=== PATIENT | female | born 1965 | race Two or more races ===

== ENCOUNTER 2016-08-08 10:32 | Observation (INO) | payer OTHER ==
[2016-08-07 16:22] VITALS: BMI 33.9
[2016-08-08] VITALS (26 sets, daily range): BP systolic 119–159; BP diastolic 57–71; PULSE 78–92; RESP 16–22; Ht 162.6 cm; Wt 91.4 kg
[~2016-08-08] VITALS: Ht 162.6 cm; Wt 91.4 kg
[2016-08-08] MEDS ORDERED: AMLO-147 PO (11:51)
[2016-08-08] MEDS ORDERED: HYDR-906 PO (11:52)
[2016-08-08] MEDS ORDERED: IBUP800T25 PO (11:52)
[2016-08-08 12:41] LABS: INR 1.08; PARTIAL THROMBOPLASTIN TIME 28.1 Sec (25.0-35.0); PT RATIO 1.1
--- NOTE | 2016-08-08 13:14 | HPN ---
Date/Time of Note Date/Time of Note DATE: 08/08/16 TIME: 13:14 Interval H&P Admission Note Pt. seen H&P reviewed: No system changes SOREN PETERSEN MD Aug 08, 2016 13:14
[2016-08-08] MEDS ORDERED: MIDAZOLAM 1 MG/ML 2 ML INJ ONE (13:18)
[2016-08-08] MEDS ORDERED: ROPIVACAINE 0.5 % 30 ML VIAL ONE (13:18)
[2016-08-08] MEDS: CEFAZOLIN 1 GM/50 ML (PMX) 50 ML IVPB SCH ×2 (13:30→21:41)
[2016-08-08] MEDS ORDERED: oxyCODONE 5 MG TAB PO PRN (13:30)
[2016-08-08] MEDS ORDERED: EPINEPHrine 1 MG INJ ONE (14:23)
[2016-08-08] MEDS ORDERED: EPINEPHrine 1 MG/ML 30 ML INJ ONE (14:26)
[2016-08-08] MEDS ORDERED: LIDOCAINE 2%/EPI 30 ML INJ ONE ×3 (14:28→14:30)
[2016-08-08] MEDS ORDERED: LIDOCAINE 2% (SDV) 5 ML INJ ONE (14:29)
[2016-08-08] MEDS ORDERED: hydrALAzine 20 MG INJ IV PRN ×2 (14:30→23:30)
[2016-08-08] MEDS ORDERED: MEPERIDINE 25 MG INJ IV PRN (14:30)
[2016-08-08] MEDS ORDERED: CEFAZOLIN 1 GM INJ ONE (14:30)
[2016-08-08] MEDS ORDERED: LABETALOL HCL 20MG INJ IV PRN (14:30)
[2016-08-08] MEDS ORDERED: GLYCOPYRROLATE 0.4 MG INJ ONE (14:30)
[2016-08-08] MEDS ORDERED: ONDANSETRON 4 MG INJ IV PRN ×2 (14:30→23:00)
[2016-08-08] MEDS ORDERED: EPHEDrine SULFATE 50 MG/5 ML SYG IV PRN (14:30)
[2016-08-08] MEDS ORDERED: PROPOFOL 20 ML ONE (14:30)
[2016-08-08] MEDS ORDERED: MIDAZOLAM 1 MG/ML 2 ML INJ IV PRN (14:30)
[2016-08-08] MEDS ORDERED: HYDROmorphONE (0.2 MG/ML) 10ML SYG IV PRN ×2 (14:30)
[2016-08-08] MEDS ORDERED: SUCCINYLCHOLINE CHLORIDE 100 MG/5 ML SYG IV ONE (14:30)
[2016-08-08] MEDS ORDERED: NEOSTIGMINE 3 MG/3 ML SYRINGE ONE (14:30)
[2016-08-08] MEDS ORDERED: METOCLOPRAMIDE 10 MG INJ ONE (14:30)
[2016-08-08] MEDS ORDERED: morphine (1 MG/ML) 10ML SYRINGE IV PRN ×2 (14:30)
[2016-08-08] MEDS ORDERED: FENTAnyl 50 MCG/ML VIAL IV PRN ×2 (14:30)
[2016-08-08] MEDS ORDERED: DIPHENHYDRAMINE 50 MG INJ IV PRN ×2 (14:30→23:00)
[2016-08-08] MEDS ORDERED: METOCLOPRAMIDE 10 MG INJ IV PRN (14:30)
[2016-08-08] MEDS ORDERED: ROCURONIUM 50 MG INJ ONE ×2 (14:30→16:23)
[2016-08-08] MEDS ORDERED: ONDANSETRON 4 MG INJ ONE (14:30)
[2016-08-08] MEDS ORDERED: POLYMYXIN/BACITRACIN 1L IRRIG IRR ONE (15:04)
[2016-08-08] MEDS ORDERED: GELATIN SIZE 100 SPONGE ONE (15:18)
[2016-08-08] MEDS ORDERED: THROMBIN 5000 UNIT VIAL ONE (15:19)
[2016-08-08] MEDS ORDERED: hydrALAzine 20 MG INJ ONE (16:38)
--- NOTE | 2016-08-08 17:55 | RADRPT ---
Vent Rate: 72 bpm RR Interval: 0 msec CO Interval: 154 msec QRS Duration: 98 msec QT Interval: 408 msec QTC Interval: 446 msec P-R-T Cantil: 27 - -5 - 40 degrees Normal sinus rhythm Normal ECG Electronically Signed By: Ramos Torres [id number]
--- NOTE | 2016-08-08 19:29 | OPR ---
Date/Time of Note Date/Time of Note DATE: 08/08/16 TIME: 19:21 Operative Report Procedure Date: Aug 08, 2016 Preoperative Diagnosis Left clavicle fracture Postoperative Diagnosis Left clavicle fracture Operation Performed Left clavicle ORIF Surgeon: SOREN PETERSEN MD Anesthesia: general, other (intrascalene) Anesthesiologist: BAYLEE IBARRA MD- Estimated Blood Loss: 10 - 50 ml's Complications: None Pt Condition Post Procedure: stable Disposition: PACU Indications Patient is a 50 yo female who sustained a comminuted, displaced midshaft clavicle fracture with approximately 150% displacement of the fracture . Given the significant displacement patient was indicated for surgical fixation. We had discussed operative versus non operative management of the fracture and patient wished to proceed with surgery. Risk note: Patient was found the risks of surgery and the patient's little shell tribe language including not limited to infection, bleeding, injury to the blood vessels, nerves, ligaments, tendons. Risks also include need for future surgery risk of anesthesia. Patient acknowledges risk by signing the surgical consent form. Operative\Procedure Findings Implants: One Acumed midshaft left clavicle plate with 6 screws Procedure Description Patient was met in the preoperative holding area and the operative site and consent was confirmed with the patient and the consent and the operative site was correctly marked. Patient was then brought back in the operative theater placed supine operative table given a intrascalene block. Patient was then given preoperative antibiotics and then placed into the beachchair position with all bony prominences well-padded. Patient was then prepped and draped in the normal sterile fashion and timeout was taken. All parties in the room agreed is correct patient, extremity and procedure. Prior to incision the fluoroscopy unit was brought in and C-arm confirmed the midshaft clavicle fracture with comminution and approximately 150 200% displacement. Fracture site was confirmed and then approximately 8 cm incision was made just inferior to the clavicle centered over the fracture site. The platysma was then incised transversely and the supraclavicular nerves were identified and every effort was made to preserve them. The clavipectoral fascia was then incised exposing the clavicle. minimal soft tissue dissection was then performed on the underlying clavipectoral fascia to expose the fracture. Care was taken to preserve bony soft tissue attachments to all bony fragments. Once the fracture site was identified the fracture site had all hematoma and early callus removed and the fracture had a butterfly component which was reduced and held in position. The plate was fixed on the anterior surface of the clavicle initially fixed with a single bicortical position screw along the lateral aspect of the fracture pattern. 2 2.3mm lag screws were placed from the butterfly to the lateral fragment. The remaining medial side was then reduced to the remainder of the clavicle fracture. The fracture was fixated on the lateral aspect initially and then using the compression screw slot on the medial side the fracture was further reduced. All remaining screw slots were filled so that there were 3 slots filled on both the medial and lateral aspect of the fracture. Once the fracture shown to be well reduced in all positions under fluoroscopic view the wound was irrigated thoroughly and closed in layers with great care taken to close the clavipectoral fascia as well as to close the platysma. The wound was closed with 2-0 Vicryl followed by a 3-0 Monocryl followed by a 4-0 Monocryl in a running fashion and then covered with Dermabond and Tegaderm. Patient was then placed into a sling Patient was brought to the PACU in stable condition and all sponge and needle counts were correct. SOREN PETERSEN MD Aug 08, 2016 19:29
[2016-08-08] MEDS: SENNA/DOCUSATE NA (8.6MG/50MG) TAB PO SCH (21:00)
[2016-08-08] MEDS ORDERED: ALPRAZOLAM 0.25 MG TAB PO ONE (21:00)
[2016-08-08] MEDS ORDERED: CEPASTAT LOZENGE MT PRN (23:00)
[2016-08-08] MEDS: LACTATED RINGER'S 1,000 ML IV SCH (23:17)
[2016-08-09 00:01] VITALS: BP 130/63; PULSE 78; RESP 18
[2016-08-09] MEDS: HYDROmorphONE 1 MG/ML SYG IV PRN ×4 (01:38→18:52)
--- NOTE | 2016-08-09 02:39 | RADRPT ---
PROCEDURE: Fluoroscopy services. CLINICAL INDICATION: Fracture of the left clavicle TECHNIQUE: Fluoroscopy services during reduction and placement of internal metallic fixation for f racture of the left clavicle COMPARISON: None. FINDINGS: Fluoroscopy services during reduction and placement of internal metallic fixation for fracture of th e left clavicle. Multiple intraoperative spot films were obtained at intermediate stages during this procedure and demonstrate fracture reduction, and placement of plate and screw fixation over the le ft clavicle. Endotracheal intubation is seen, with tip above the briana. 6 seconds of fluoroscopy time were employed during this procedure. IMPRESSION: Fluoroscopy services during reduction and placement of internal metallic fixation for fracture of th e left clavicle. RPTAT: [facility] Physician Gonzalo Date Time Electronically viewed and signed by Physician Gonzalo on 08/09/2016 02:39 RS/
[2016-08-09] MEDS: oxyCODONE 5 MG TAB PO PRN ×4 (03:35→17:26)
[2016-08-09 04:00] VITALS: BP 128/58; PULSE 77; RESP 18
[2016-08-09] MEDS: CEFAZOLIN 1 GM/50 ML (PMX) 50 ML IVPB SCH (04:40)
--- NOTE | 2016-08-09 06:47 | CONS ---
Date/Time of Note Date/Time of Note DATE: 08/09/16 TIME: 06:37 Assessment/Plan Assessment/Plan Additional Assessment/Plan IMPRESSION 1. HTN: 2. Left clavicle fx s/p ORIF 3. hx of Jung-Danlos Syndrome PLAN Resume home Norvasc. Will add PRN Hydralazine cont pain mgmt Surgical care and DVT ppx per Ortho Consultation Date/Type/Reason Admit Date/Time Aug 08, 2016 at 13:18 Hx of Present Illness This is a 51 yo female with hx of HTN, Jung-Danlos syndrome, sinusitis and uterine fibroid who was admitted under ortho service for sustained a comminuted , displaced midshaft clavicle fracture. She is now s/p left clavicle ORIF. Consult was placed for mgmt of HTN. Except for intermittent pain at surgical site, pt currently does not have any complaints. denied CP, SOB, fever, chills, N/V. Her BP since admission has been ranging 122/59 - 159/71. Past Medical History Medical History: hypertension Social History Alcohol Use: occasionally Smoking Status: Never smoker Drug Use: none Exam/Review of Systems Vital Signs Vitals Vital Signs Date Time Temp Pulse Resp B/P Pulse Ox O2 Delivery O2 Flow Rate FiO2 08/09/16 04:00 97.9 77 18 128/58 98 Nasal Cannula 2.0 Intake and Output 08/08/16 08/08/16 08/09/16 15:00 23:00 07:00 Intake Total 1290 ml 1175 ml Output Total 550 ml 1000 ml Balance 740 ml 175 ml Exam Constitutional: other (lying in bed . No acute distress) Head: atraumatic, normocephalic Eyes: EOMI, PERRL Respiratory: clear to auscultation, normal air movement Cardiovascular: nl pulses, regular rate and rhythm Gastrointestinal: non-tender, soft Extremities: other (left upper ext covered) Results Results 24 hrs Laboratory Tests Test 08/08/16 12:05 Prothrombin Time 14.0 Prothrombin Time Ratio 1.1 INR International Normalized Ratio 1.08 Activated Partial Thromboplast Time 28.1 Medications Medications Current Medications Senna/Docusate Sodium (Senokot-S) 1 tab BID PO ; Start 08/08/16 at 21:00 Oxycodone HCl (Roxicodone) 10 mg Q4H PRN PO PAIN Last administered on 08/09/16 03:35; Admin Dose 10 MG; Start 08/08/16 at 22:45 Ondansetron HCl (Zofran Inj) 4 mg Q6H PRN IV NAUSEA AND/OR VOMITING Last administered on 08/09/16 03:34; Admin Dose 4 MG; Start 08/08/16 at 23:00 Hydromorphone HCl (Dilaudid) 0.5 mg Q3H PRN IV PAIN Last administered on 04:40; Admin Dose 0.5 MG; Start 08/08/16 at 23:00 Diphenhydramine HCl (Benadryl) 25 mg Q6H PRN IV ALLERGIC REACTION; Start at 23:00 Phenol 1 lozenge 1 lozenge Q1H PRN MT SORE THROAT Last administered on 23:42; Admin Dose 1 LOZENGE; Start 08/08/16 at 23:00 Lactated Ringer's (Lr) 1,000 ml @ 75 mls/hr [id number] IV Last administered on 23:17; Admin Dose 75 MLS/HR; Start 08/08/16 at 23:00 Amlodipine Besylate (Norvasc) 10 mg DAILY PO ; Start 08/09/16 at 09:00 Hydralazine HCl (Apresoline) 10 mg Q4H PRN IV ELEVATED BLOOD PRESSURE; Start at 23:30 CACHORRO CAMPBELL MD Aug 09, 2016 06:47
[2016-08-09] MEDS: SENNA/DOCUSATE NA (8.6MG/50MG) TAB PO SCH (09:00)
[2016-08-09] MEDS ORDERED: AMLODIPINE 10 MG TAB PO SCH (09:00)
[2016-08-09 09:49] VITALS: BP 133/67; RESP 18
[2016-08-09 09:50] LABS: ADD SCAN DIFF NO
[2016-08-09 09:51] LABS: BASOPHILS % 0.1 % (0.0-2.0); EOSINOPHILS # 0.1 10^3/ul (0.0-0.5); EOSINOPHILS % 0.9 % (0.0-7.0); HEMATOCRIT 34.9 % (37.0-47.0); HEMOGLOBIN 11.6 g/dl (12.0-16.0); LYMPHOCYTES # 2.2 10^3/ul (0.8-2.9); LYMPHOCYTES % 23.2 % (15.0-51.0); MEAN CORPUSCULAR HEMOGLOBIN 29.8 pg (29.0-33.0); MEAN CORPUSCULAR HGB CONC 33.2 g/dl (32.0-37.0); MEAN CORPUSCULAR VOLUME 89.7 fl (82.0-101.0); MEAN PLATELET VOLUME 10.8 fl (7.4-10.4); MONOCYTE # 0.7 10^3/ul (0.3-0.9); NEUTROPHIL # 6.4 10^3/ul (1.6-7.5); NEUTROPHILS % 68.6 % (39.0-77.0); PLATELET COUNT 269 10^3/UL (140-415); RED BLOOD COUNT 3.89 10^6/ul (4.20-5.40); RED CELL DISTRIBUTION WIDTH 13.8 % (11.5-14.5); WHITE BLOOD COUNT 9.3 10^3/ul (4.8-10.8)
[2016-08-09] MEDS ORDERED: ALPRAZOLAM 0.5 MG TAB PO PRN (10:00)
[2016-08-09 10:13] LABS: ALBUMIN 3.9 g/dl (3.3-4.9); ALBUMIN/GLOBULIN RATIO 1.85; BILIRUBIN,INDIRECT 0.6 mg/dl (0-1.1); BILIRUBIN,TOTAL 0.6 mg/dl (0.2-1.3); CALCIUM 8.4 mg/dl (8.4-10.2); CREATININE 0.61 mg/dl (0.44-1.00); POTASSIUM 3.7 mmol/L (3.5-5.1)
--- NOTE | 2016-08-09 11:46 | PN ---
Date/Time of Note Date/Time of Note DATE: 08/09/16 TIME: 11:44 Assessment/Plan Lines/Catheters IV Catheter Type (from Nrsg): Peripheral IV Shah in Place (from Nrsg): No Assessment/Plan Assessment/Plan POD# 1 s/p Left Clavicle ORIF. Patient has a h/o Jung Danlos Syndrome - NWB to the LUE - OT consult - Po pain meds with oxycodone and neurontin, xanax prn for anxiety at night - DC home today Subjective 24 Hr Interval Summary Patient reports her pain is better controlled today. She denies any f/c/n/v. She reports feeling very anxious Exam/Review of Systems Vital Signs Vitals Vital Signs Date Time Temp Pulse Resp B/P Pulse Ox O2 Delivery O2 Flow Rate FiO2 08/09/16 09:49 98.4 95 18 133/67 100 08/09/16 04:00 Nasal Cannula 2.0 Intake and Output 08/08/16 08/08/16 08/09/16 14:59 22:59 06:59 Intake Total 1290 ml 1175 ml Output Total 550 ml 1000 ml Balance 740 ml 175 ml Exam Constitutional: alert, oriented, well developed Musculoskeletal: other (LUE/ Dressing is c/d/i, silt to the vif/vsf/fdws/lat delt, intact we/wf/ehl) Results Result Diagram: 08/09/1691808/09/16918 SOREN PETERSEN MD Aug 09, 2016 11:46
--- NOTE | 2016-08-09 11:47 | DS ---
Date/Time of Note Date/Time of Note DATE: 08/09/16 TIME: 11:46 Discharge Summary Admission/Discharge Info Admit Date/Time Aug 08, 2016 at 13:18 Discharge Date/Time 08/09/16 Final Diagnosis Left Clavicle Fracture, Jung Danlos Syndrome Patient Condition: Good Consults Internal Med Procedures Left Clavicle ORIF Hospital Course This is a 51 yo female with hx of HTN, Jung-Danlos syndrome, sinusitis and uterine fibroid who was admitted under ortho service for sustained a comminuted , displaced midshaft clavicle fracture. She is now s/p left clavicle ORIF. Consult was placed for mgmt of HTN. Except for intermittent pain at surgical site, pt currently does not have any complaints. denied CP, SOB, fever, chills, N/V. Her BP since admission has been ranging 122/59 - 159/71. Home Meds Reported Medications Ibuprofen* (Ibuprofen*) 800 Mg Tab, 800 MG PO DAILY Y for PAIN, TAB 08/08/16 Hydrocodone/Acetaminophen ([place] 5-325 Tablet) 1 Each Tablet, 1 EACH PO DAILY Y for SEVERE PAIN LEVEL 7-10, TAB 08/08/16 Amlodipine Besylate* (Amlodipine Besylate*) 10 Mg Tablet, 10 MG PO DAILY, #30 TAB 08/08/16 Follow-up Plan 1 week Primary Care Provider Not On Staff Doctor Time spent on discharge: > 30 minutes Pending Labs Laboratory Tests Test 08/08/16 12:05 08/09/16 09:19 Prothrombin Time 14.0Sec (12.2-14.2) Prothrombin Time Ratio 1.1 INR International Normalized Ratio 1.08 Activated Partial Thromboplast Time 28.1Sec (25.0-35.0) White Blood Count 9.310^3/ul (4.8-10.8) Red Blood Count 3.8910^6/ul (4.20-5.40) Hemoglobin 11.6g/dl (12.0-16.0) Hematocrit 34.9% (37.0-47.0) Mean Corpuscular Volume 89.7fl (82.0-101.0) Mean Corpuscular Hemoglobin 29.8pg (29.0-33.0) Mean Corpuscular Hemoglobin Concent 33.2g/dl (32.0-37.0) Red Cell Distribution Width 13.8% (11.5-14.5) Platelet Count 97885^3/UL (140-415) Mean Platelet Volume 10.8fl (7.4-10.4) Neutrophils % 68.6% (39.0-77.0) Lymphocytes % 23.2% (15.0-51.0) Monocytes % 7.0% (0.0-11.0) Eosinophils % 0.9% (0.0-7.0) Basophils % 0.1% (0.0-2.0) Nucleated Red Blood Cells % 0.0/100WBC (0.0-0.0) Neutrophils # 6.410^3/ul (1.6-7.5) Lymphocytes # 2.210^3/ul (0.8-2.9) Monocytes # 0.710^3/ul (0.3-0.9) Eosinophils # 0.110^3/ul (0.0-0.5) Basophils # 0.010^3/ul (0.0-0.1) Nucleated Red Blood Cells # 0.010^3/ul (0.0-0.0) Sodium Level 139mmol/L (135-144) Potassium Level 3.7mmol/L (3.5-5.1) Chloride Level 105mmol/L (97-110) Carbon Dioxide Level 27mmol/L (21-31) Anion Gap 11 (8-16) Blood Urea Nitrogen 9mg/dl (7-20) Creatinine 0.61mg/dl (0.44-1.00) Glucose Level 98mg/dl (70-220) Calcium Level 8.4mg/dl (8.4-10.2) Total Bilirubin 0.6mg/dl (0.2-1.3) Direct Bilirubin 0.00mg/dl (0.00-0.20) Indirect Bilirubin 0.6mg/dl (0-1.1) Aspartate Amino Transf (AST/SGOT) 17IU/L (15-46) Alanine Aminotransferase (ALT/SGPT) 26IU/L (13-69) Alkaline Phosphatase 76IU/L (42-121) Total Protein 6.0g/dl (6.1-8.1) Albumin 3.9g/dl (3.3-4.9) Globulin 2.10g/dl (1.3-3.2) Albumin/Globulin Ratio 1.85 SOREN PETERSEN MD Aug 09, 2016 11:47
[2016-08-09] MEDS ORDERED: ONDA4VIA2 PO (11:50)
[2016-08-09] MEDS ORDERED: GABA100C14 PO (11:50)
[2016-08-09] MEDS ORDERED: ALPR0.5T6 PO (11:50)
[2016-08-09] MEDS ORDERED: OXYC-481 PO (11:50)
--- NOTE | 2016-08-09 11:51 | PDOCDIS ---
Discharge Instructions DIAGNOSIS Discharge Diagnosis: left clavicle frature CONDITION Patient Condition: Good HOME CARE INSTRUCTIONS: Diet Instructions: Regular ACTIVITY: Activity Restrictions: Do not Drive Do not operate Machinery Do not operate Power Tool Avoid Heavy Housework No Weight Bearing (to the left upper extremity) Bathing Restrictions: Shower FOLLOW UP/APPOINTMENTS Appointments 1 week with SOREN Ventura MD Aug 09, 2016 11:51
[2016-08-09] MEDS: LACTATED RINGER'S 1,000 ML IV SCH (12:20)
[2016-08-09] MEDS ORDERED: GABAPENTIN 100 MG CAP PO SCH (13:00)
--- NOTE | 2016-08-09 17:19 | PN ---
Date/Time of Note Date/Time of Note DATE: 08/09/16 TIME: 17:17 Assessment/Plan VTE Prophylaxis VTE Prophylaxis Intervention: ambulation Lines/Catheters IV [facility] Peripheral IV Urinary Cath still in place: No Assessment/Plan Chief Complaint/Hosp Course Subjective: Events noted. Blood pressure better. No chest pain dyspnea Objective: Blood pressure/vital signs stable PE No pallor Regular Clear Benign no abdominal bruits No edema Assessment and plan 1. Clavicular fracture status post ORIF. Stable discharge on [place] 2. Chr hypertension; bp stable, treat pain. no evidence of end organ damage or hypokalemia. Stable. discharge 3. Anemia Problems: Exam/Review of Systems Vital Signs Vitals Vital Signs Date Time Temp Pulse Resp B/P Pulse Ox O2 Delivery O2 Flow Rate FiO2 08/09/16 09:49 98.4 95 18 133/67 100 08/09/16 08:00 2.0 08/09/16 04:00 Nasal Cannula Intake and Output 08/08/16 08/08/16 08/09/16 15:00 23:00 07:00 Intake Total 1290 ml 1175 ml Output Total 550 ml 1000 ml Balance 740 ml 175 ml Results Result Diagram: 08/09/1619 08/09/16 0919 Results 24 hrs Laboratory Tests Test 08/09/16 09:19 White Blood Count 9.3 Red Blood Count 3.89 L Hemoglobin 11.6 L Hematocrit 34.9 L Mean Corpuscular Volume 89.7 Mean Corpuscular Hemoglobin 29.8 Mean Corpuscular Hemoglobin Concent 33.2 Red Cell Distribution Width 13.8 Platelet Count 269 Mean Platelet Volume 10.8 H Neutrophils % 68.6 Lymphocytes % 23.2 Monocytes % 7.0 Eosinophils % 0.9 Basophils % 0.1 Nucleated Red Blood Cells % 0.0 Neutrophils # 6.4 Lymphocytes # 2.2 Monocytes # 0.7 Eosinophils # 0.1 Basophils # 0.0 Nucleated Red Blood Cells # 0.0 Sodium Level 139 Potassium Level 3.7 Chloride Level 105 Carbon Dioxide Level 27 Anion Gap 11 Blood Urea Nitrogen 9 Creatinine 0.61 Glucose Level 98 Calcium Level 8.4 Total Bilirubin 0.6 Direct Bilirubin 0.00 Indirect Bilirubin 0.6 Aspartate Amino Transf (AST/SGOT) 17 Alanine Aminotransferase (ALT/SGPT) 26 Alkaline Phosphatase 76 Total Protein 6.0 L Albumin 3.9 Globulin 2.10 Albumin/Globulin Ratio 1.85 Medications Medications Current Medications Senna/Docusate Sodium (Senokot-S) 1 tab BID PO ; Start 08/08/16 at 21:00 Oxycodone HCl (Roxicodone) 10 mg Q4H PRN PO PAIN Last administered on 08/09/16 13:33; Admin Dose 10 MG; Start 08/08/16 at 22:45 Ondansetron HCl (Zofran Inj) 4 mg Q6H PRN IV NAUSEA AND/OR VOMITING Last administered on 08/09/16 03:34; Admin Dose 4 MG; Start 08/08/16 at 23:00 Hydromorphone HCl (Dilaudid) 0.5 mg Q3H PRN IV PAIN Last administered on 07:46; Admin Dose 0.5 MG; Start 08/08/16 at 23:00 Diphenhydramine HCl (Benadryl) 25 mg Q6H PRN IV ALLERGIC REACTION; Start at 23:00 Phenol 1 lozenge 1 lozenge Q1H PRN MT SORE THROAT Last administered on 23:42; Admin Dose 1 LOZENGE; Start 08/08/16 at 23:00 Lactated Ringer's (Lr) 1,000 ml @ 75 mls/hr [id number] IV Last administered on 23:17; Admin Dose 75 MLS/HR; Start 08/08/16 at 23:00 Amlodipine Besylate (Norvasc) 10 mg DAILY PO Last administered on 08/09/16 08: 44; Admin Dose 10 MG; Start 08/09/16 at 09:00 Hydralazine HCl (Apresoline) 10 mg Q4H PRN IV ELEVATED BLOOD PRESSURE; Start at 23:30 Gabapentin (Neurontin) 100 mg TID PO Last administered on 08/09/16 13:33; Admin Dose 100 MG; Start 08/09/16 at 13:00 Alprazolam (Xanax) 0.5 mg Q8H PRN PO ANXIETY Last administered on 08/09/16 10: 39; Admin Dose 0.5 MG; Start 08/09/16 at 10:00 KAREN ALONSO MD Aug 09, 2016 17:19
== END 2016-08-09 20:10 | disposition home or self-care (01) ==
LOC: SDS 10:32 → REC 13:18 → SDS 13:18 → MS1 20:50
PROVIDERS: ADMIT Orthopaedic Surgery; ATTEND Orthopaedic Surgery
DX: S42.022A Displaced fracture of shaft of left clavicle, initial encounter for closed fracture (principal); I10 Essential (primary) hypertension; Q79.6 Ehlers-Danlos syndromes; E66.9 Obesity, unspecified; Z68.34 Body mass index [BMI] 34.0-34.9, adult; X58.XXXA Exposure to other specified factors, initial encounter; Y93.9 Activity, unspecified; Y99.9 Unspecified external cause status; Y92.9 Unspecified place or not applicable
CPT/HCPCS: 23515; 73000; 80053; 82306; 85025; 85610; 85730; 93005; 96365; 96375; 96376; 97167; J0171; J0360; J0690; J1170; J2250; J2405; J2710; J2765; J2795; J7120; J7999; Z7500; Z7512; Z7610; G0378